=== PATIENT | female | born 1970 | race Caucasian/White ===

== ENCOUNTER 2021-04-21 13:37 | Inpatient (IN) ==
[2021-04-21 18:03] LABS: Basophils # 0.1 K/mcL (0.0-0.2); Basophils % 0.8 %; Eosinophils % 0.4 %; Hematocrit 41.2 % (35.3-44.9); Hemoglobin 14.1 g/dL (11.5-15.4); Immature Granulocytes % 0.3 % (0-4); Lymphocytes # 3.4 K/mcL (0.6-4.6); Mean Corpuscular HGB Conc 34.2 g/dL (31.6-35.5); Mean Corpuscular Hemoglobin 34.8 pg (28.0-33.3); Mean Corpuscular Volume 101.7 fL (83.0-100.0); Mean Platelet Volume 10.8 fL (9.4-12.4); Monocytes # 0.9 K/mcL (0.0-1.3); Neutrophils # 5.5 K/mcL (1.6-8.9); Nucleated Red Blood Cells 0.2 /100 WBC (0); Platelet Count 358 K/mcL (140-400); Red Blood Count 4.05 M/mcL (3.82-4.97); Red Cell Distribution Width 13.7 % (11.5-14.5); Segmented Neutrophils % 55.5 %; White Blood Count 9.9 K/mcL (4.3-11.1)
[2021-04-21 18:05] LABS: VBG HCO3 43 mEq/L (21-27); VBG PCO2 46 mmHg (41-51); VBG PH 7.58 pH Units (7.32-7.42); VBG PO2 34 mmHg (25-50)
[2021-04-21 18:31] LABS: Alanine Aminotransferase 27 Units/L (7-52); Albumin 2.5 g/dL (3.5-5.7); Albumin/Globulin Ratio 0.7 (1.1-2.2); Alkaline Phosphatase 210 Units/L (34-104); Aspartate Amino Transferase 76 Units/L (13-39); BUN/Creatinine Ratio 7 (6-26); Bilirubin,Direct 0.9 mg/dL (0.0-0.2); Bilirubin,Indirect 1.3 mg/dL (0.0-1.0); Bilirubin,Total 2.2 mg/dL (0.3-1.0); Blood Urea Nitrogen 8 mg/dL (6-20); Calcium 8.6 mg/dL (8.6-10.3); Carbon Dioxide 41 mEq/L (23-29); Chloride 79 mEq/L (98-107); Globulin 3.8 g/dL (2.4-3.5); Glucose 225 mg/dL (70-105); Lipase 27 Units/L (11-82); Osmolality,Calculated 275 (280-300); Potassium 2.3 mEq/L (3.5-5.1); Sodium 130 mEq/L (136-145); Total Protein 6.3 g/dL (6.4-8.9); eGFR For African Americans > 60 (> 60); eGFR For Non-African Americans 50 (> 60)
[2021-04-21] MEDS ORDERED: POTASSIUM CHLORIDE IN 0.9%NACL 40 MEQ/1,000 ML IV.SOLN IV STA (18:36)
[2021-04-21 18:39] LABS: Amorphous Sediment,Urine Few per hpf (None-Few); Bacteria,Urine Moderate per hpf (None-Few); Bilirubin,Urine Negative (Negative); Blood,Urine Negative (Negative); Clarity,Urine Turbid (Clear); Color,Urine Yellow (Yellow); Glucose,Urine (UA) Normal (Normal); Hyaline Casts,Urine Many per lpf (None Seen); Ketones,Urine Negative (Negative); Leukocyte Esterase,Urine Large (Negative); Mucus,Urine Few per lpf (None-Few); Nitrite,Urine Negative (Negative); Protein,Urine 30 mg/dL (Neg-Trace); Specific Gravity,Urine 1.017 (1.010-1.025); Squamous Epithelial Cell,Urine Moderate per hpf (None-Few); WBC,Urine 50-100 per hpf (0-3)
[2021-04-21] MEDS ORDERED: Isovue-370 500 ML BOTTLE IVP ONE (18:45)
[2021-04-21] MEDS ORDERED: 0.9 % Sodium Chloride 1,000 ML IVC ONE (18:49)
[2021-04-21] MEDS ORDERED: Potassium Chloride 40 MEQ, Lidocaine 1% 2 ML in 0.9 % Sodium Chloride 500 ML IVPB ONE (19:21)
[2021-04-21] MEDS ORDERED: cefTRIAXone 1,000 MG in Water for inj. (sterile) 10 ML IVP ONE (22:03)
[2021-04-21] MEDS ORDERED: Azithromycin 500 MG in 0.9 % Sodium Chloride 250 ML IVPB ONE (22:04)
[2021-04-21] MEDS ORDERED: Piperacillin/Tazobactam 3.375 GM in 0.9 % Sodium Chloride Mini Bag 100 ML IVPB ONE (22:06)
[2021-04-22 00:17] LABS: INR 1.3; Prothrombin Time 14.4 Seconds (9.4-12.1)
[2021-04-22] MEDS ORDERED: Naloxone 0.4 MG/ML INJ IVP PRN (07:24)
[2021-04-22] MEDS ORDERED: D5% in Water 1,000 ML IVC PRN (08:20)
[2021-04-22] MEDS ORDERED: Dextrose Gel 15 GM/37.5 ML TUBE PO PRN ×2 (08:20)
[2021-04-22] MEDS ORDERED: *HR* Dextrose 50 % in Water (Vial) 50 ML VIAL IVP PRN (08:20)
[2021-04-22] MEDS ORDERED: Ibuprofen 400 MG TABLET PO ONE (08:30)
[2021-04-22] MEDS: *HR* Heparin 5,000 UNIT/ML VIAL SQ SCH ×2 (08:42→17:00)
[2021-04-22] MEDS ORDERED: *HR* LORazepam 2 MG/ML VIAL IVP PRN ×3 (10:35)
[2021-04-22 10:41] LABS: Amphetamine Screen,Urine Negative ng/mL (Cutoff=1000); Barbiturate Screen,Urine Negative ng/mL (Cutoff=200); Benzodiazepines Screen,Urine Negative ng/mL (Cutoff=200); Cannabinoid Screen,Urine Negative ng/mL (Cutoff = 50); Cocaine Screen,Urine Negative ng/mL (Cutoff= 300); Opiate Screen,Urine Negative ng/mL (Cutoff=300); Phencyclidine Screen,Urine Negative ng/mL (Cutoff=25)
[2021-04-22] MEDS: Furosemide 20 MG TABLET PO SCH (11:44)
[2021-04-22] MEDS: Insulin LISPRO 300 UNITS/3 ML VIAL SUBQ SCH ×3 (11:45→20:22)
[2021-04-22 12:03] LABS: Hematocrit 38.9 % (35.3-44.9); Hemoglobin 13.4 g/dL (11.5-15.4); Mean Corpuscular HGB Conc 34.4 g/dL (31.6-35.5); Mean Corpuscular Volume 101.6 fL (83.0-100.0); Mean Platelet Volume 10.6 fL (9.4-12.4); Platelet Count 374 K/mcL (140-400); Red Blood Count 3.83 M/mcL (3.82-4.97); Red Cell Distribution Width 14.1 % (11.5-14.5); White Blood Count 9.6 K/mcL (4.3-11.1)
[2021-04-22 12:26] LABS: % Iron Saturation 67 % (15-50); Iron 109 mcg/dL (50-170); Transferrin 116 mg/dL (203-362)
[2021-04-22 12:33] LABS: BUN/Creatinine Ratio 7 (6-26); Blood Urea Nitrogen 7 mg/dL (6-20); Calcium 8.3 mg/dL (8.6-10.3); Carbon Dioxide 39 mEq/L (23-29); Chloride 83 mEq/L (98-107); Glucose 176 mg/dL (70-105); Osmolality,Calculated 278 (280-300); Sodium 133 mEq/L (136-145); Troponin I 0.07 ng/mL (< 0.04); eGFR For African Americans > 60 (> 60); eGFR For Non-African Americans 59 (> 60)
[2021-04-22 12:44] LABS: Ferritin 750 ng/mL (10-120)
[2021-04-22] MEDS ORDERED: Ondansetron ODT 4 MG TAB.RAPDIS SL PRN (12:46)
[2021-04-22 12:48] LABS: Hepatitis B Surface Antigen Nonreactive (Nonreactive)
[2021-04-22 13:17] LABS: Hepatitis C Virus Antibody Nonreactive (Nonreactive)
[2021-04-22 13:18] LABS: Hepatitis B Core IgM Nonreactive (Nonreactive)
[2021-04-22 13:19] LABS: Hepatitis A Antibody IgM Nonreactive (Nonreactive)
[2021-04-22] MEDS ORDERED: Potassium Chloride 40 MEQ, Lidocaine 1% 2 ML in 0.9 % Sodium Chloride 500 ML IVPB ONE ×2 (13:54→18:36)
[2021-04-22] MEDS: Gabapentin 300 MG CAPSULE PO SCH ×2 (14:46→20:25)
[2021-04-22 16:48] LABS: RBC,Peritoneal Fluid < 2000 RBC/mcL
[2021-04-22 17:05] LABS: Glucose,Peritoneal Fluid 194 mg/dL (No Ref Range); LDH,Peritoneal Fluid 56 Units/L (No Ref Range); Total Protein,Peritoneal Fluid < 2.0 g/dL
[2021-04-22 17:29] LABS: Appearance of Peritoneal Fl CLEAR (Clear); Basophils,Peritoneal Fluid 0 %; Eosinophils,Peritoneal Fluid 0 %
[2021-04-22 18:31] LABS: Potassium 2.5 mEq/L (3.5-5.1); Troponin I 0.06 ng/mL (< 0.04)
[2021-04-22] MEDS ORDERED: Simethicone 80 MG TAB.CHEW PO PRN (18:55)
[2021-04-23] MEDS: *HR* Heparin 5,000 UNIT/ML VIAL SQ SCH ×4 (00:15→23:59)
[2021-04-23 03:43] LABS: Basophils # 0.1 K/mcL (0.0-0.2); Basophils % 0.8 %; Eosinophils # 0.1 K/mcL (0.0-0.6); Eosinophils % 1.2 %; Immature Granulocytes % 0.4 % (0-4); Lymphocytes # 2.8 K/mcL (0.6-4.6); Lymphocytes % 33.8 %; Mean Corpuscular HGB Conc 34.1 g/dL (31.6-35.5); Mean Corpuscular Hemoglobin 34.9 pg (28.0-33.3); Mean Corpuscular Volume 102.4 fL (83.0-100.0); Mean Platelet Volume 10.7 fL (9.4-12.4); Monocytes # 0.7 K/mcL (0.0-1.3); Monocytes % 8.8 %; Neutrophils # 4.6 K/mcL (1.6-8.9); Platelet Count 298 K/mcL (140-400); Red Blood Count 3.32 M/mcL (3.82-4.97); Red Cell Distribution Width 14.1 % (11.5-14.5); White Blood Count 8.3 K/mcL (4.3-11.1)
[2021-04-23 03:46] LABS: Hemoglobin 11.6 g/dL (11.5-15.4)
[2021-04-23 04:02] LABS: BUN/Creatinine Ratio 9 (6-26); Blood Urea Nitrogen 8 mg/dL (6-20); Calcium 7.7 mg/dL (8.6-10.3); Carbon Dioxide 37 mEq/L (23-29); Chloride 89 mEq/L (98-107); Glucose 210 mg/dL (70-105); Osmolality,Calculated 283 (280-300); Potassium 2.9 mEq/L (3.5-5.1); Sodium 134 mEq/L (136-145); eGFR For African Americans > 60 (> 60); eGFR For Non-African Americans > 60 (> 60)
[2021-04-23] MEDS ORDERED: Potassium Chloride 40 MEQ, Lidocaine 1% 2 ML in 0.9 % Sodium Chloride 500 ML IVPB ONE (08:05)
[2021-04-23] MEDS: lisinopriL 10 MG TABLET PO SCH (08:25)
[2021-04-23] MEDS: Gabapentin 300 MG CAPSULE PO SCH ×3 (08:25→23:11)
[2021-04-23] MEDS: Furosemide 20 MG TABLET PO SCH (08:25)
[2021-04-23] MEDS: Insulin LISPRO 300 UNITS/3 ML VIAL SUBQ SCH ×4 (08:26→21:06)
[2021-04-23 13:47] LABS: AFP Tumor Marker Non-Pregnant 6 ng/mL (0-9)
[2021-04-24] MEDS: Insulin LISPRO 300 UNITS/3 ML VIAL SUBQ SCH (08:12)
[2021-04-24 09:00] LABS: BUN/Creatinine Ratio 7 (6-26); Blood Urea Nitrogen 7 mg/dL (6-20); Calcium 8.4 mg/dL (8.6-10.3); Carbon Dioxide 39 mEq/L (23-29); Chloride 90 mEq/L (98-107); Glucose 170 mg/dL (70-105); Osmolality,Calculated 278 (280-300); Potassium 3.8 mEq/L (3.5-5.1); Sodium 133 mEq/L (136-145); eGFR For African Americans > 60 (> 60); eGFR For Non-African Americans 60 (> 60)
[2021-04-24] MEDS: Furosemide 20 MG TABLET PO SCH (09:42)
[2021-04-24] MEDS: Gabapentin 300 MG CAPSULE PO SCH (09:42)
[2021-04-24] MEDS: lisinopriL 10 MG TABLET PO SCH (09:43)
[2021-04-24] MEDS: *HR* Heparin 5,000 UNIT/ML VIAL SQ SCH (09:43)
[2021-04-24 11:02] VITALS: BP 126/86
[2021-04-24 11:28] LABS: ANA IgG by ELISA NONE DETECTED (None Detected); F-Actin (sm muscle) Ab IgG 6 Units (0-19)
[2021-04-24 22:31] LABS: Fluid Source for Albumin PERITONEAL
[2021-04-25 10:42] LABS: Serine Protease-3 Antibody 6 AU/mL (0-19)
== END 2021-04-24 11:51 | disposition home or self-care (01) | DRG 434 ==
LOC: EMEROOARM 13:37 → CDU 13:37 → SUATTDRO 04-22 07:43 → CDU 04-22 07:51 → 3BNU 04-23 15:32
PROVIDERS: ADMIT Internal Medicine; ATTEND Internal Medicine

== ENCOUNTER 2021-05-16 10:14 | Inpatient (IN) ==
[2021-05-16 11:09] LABS: Basophils # 0.1 K/mcL (0.0-0.2); Basophils % 1.2 %; Eosinophils # 0.3 K/mcL (0.0-0.6); Eosinophils % 3.8 %; Hematocrit 42.5 % (35.3-44.9); Hemoglobin 13.7 g/dL (11.5-15.4); Immature Granulocytes % 0.3 % (0-4); Lymphocytes % 23.2 %; Mean Corpuscular HGB Conc 32.2 g/dL (31.6-35.5); Mean Corpuscular Hemoglobin 33.6 pg (28.0-33.3); Mean Corpuscular Volume 104.2 fL (83.0-100.0); Mean Platelet Volume 9.7 fL (9.4-12.4); Monocytes # 0.7 K/mcL (0.0-1.3); Neutrophils # 5.5 K/mcL (1.6-8.9); Platelet Count 492 K/mcL (140-400); Red Blood Count 4.08 M/mcL (3.82-4.97); Segmented Neutrophils % 63.5 %; White Blood Count 8.6 K/mcL (4.3-11.1)
[2021-05-16 11:40] LABS: BUN/Creatinine Ratio 9 (6-26); Blood Urea Nitrogen 7 mg/dL (6-20); Calcium 8.9 mg/dL (8.6-10.3); Carbon Dioxide 27 mEq/L (23-29); Chloride 96 mEq/L (98-107); Glucose 160 mg/dL (70-105); Osmolality,Calculated 279 (280-300); Potassium 3.4 mEq/L (3.5-5.1); Sodium 134 mEq/L (136-145); Troponin I < 0.03 ng/mL (< 0.04); eGFR For African Americans > 60 (> 60); eGFR For Non-African Americans > 60 (> 60)
[2021-05-16] MEDS ORDERED: Melatonin 3 MG TABLET PO PRN (15:09)
[2021-05-16 15:22] LABS: INR 1.2; Prothrombin Time 13.3 Seconds (9.4-12.1)
[2021-05-16 15:34] LABS: Lactate Dehydrogenase 269 Units/L (140-271); Total Protein 6.6 g/dL (6.4-8.9)
[2021-05-16 15:39] LABS: Albumin 2.6 g/dL (3.5-5.7); Albumin/Globulin Ratio 0.7 (1.1-2.2); Bilirubin,Direct 0.2 mg/dL (0.0-0.2); Bilirubin,Indirect 0.9 mg/dL (0.0-1.0); Bilirubin,Total 1.1 mg/dL (0.3-1.0); Globulin 3.9 g/dL (2.4-3.5); Total Protein 6.5 g/dL (6.4-8.9)
[2021-05-16] MEDS: Furosemide 40 MG TABLET PO SCH (15:57)
[2021-05-16 19:49] LABS: RBC,Pleural Fluid < 2000 RBC/mcL
[2021-05-16 19:50] LABS: Appearance of Pleural Fl Clear (Clear)
[2021-05-16 20:04] LABS: Glucose,Pleural Fluid 160 mg/dL (No Ref Range); LDH,Pleural Fluid 90 Units/L (No Ref Range); Total Protein,Pleural Fluid < 2.0 g/dL
[2021-05-16 20:42] LABS: Basophils,Pleural Fluid 0 %; Eosinophils,Pleural Fluid 0 %; Monocytes,Pleural Fluid 0 %
[2021-05-17] MEDS: Acetaminophen 325 MG TABLET PO PRN (00:04)
[2021-05-17 02:42] LABS: Alanine Aminotransferase 15 Units/L (7-52); Albumin 2.3 g/dL (3.5-5.7); Albumin/Globulin Ratio 0.7 (1.1-2.2); Alkaline Phosphatase 106 Units/L (34-104); Aspartate Amino Transferase 34 Units/L (13-39); BUN/Creatinine Ratio 8 (6-26); Bilirubin,Direct 0.3 mg/dL (0.0-0.2); Bilirubin,Indirect 0.6 mg/dL (0.0-1.0); Bilirubin,Total 0.9 mg/dL (0.3-1.0); Blood Urea Nitrogen 7 mg/dL (6-20); Calcium 8.1 mg/dL (8.6-10.3); Carbon Dioxide 26 mEq/L (23-29); Chloride 99 mEq/L (98-107); Globulin 3.5 g/dL (2.4-3.5); Glucose 143 mg/dL (70-105); Osmolality,Calculated 280 (280-300); Potassium 3.6 mEq/L (3.5-5.1); Sodium 135 mEq/L (136-145); Total Protein 5.8 g/dL (6.4-8.9); eGFR For African Americans > 60 (> 60); eGFR For Non-African Americans > 60 (> 60)
[2021-05-17] MEDS ORDERED: Albumin 25% 25gram/100mL 25 GM/100 ML IV.SOLN IVPB ONE (04:06)
[2021-05-17] MEDS: *HR* Enoxaparin 40 MG/0.4 ML SYRINGE SQ SCH (07:00)
[2021-05-17] MEDS: Furosemide 40 MG TABLET PO SCH ×2 (07:10→17:17)
[2021-05-17] MEDS ORDERED: Perflutren Lipid Microsphere 1.3 ML in 0.9 % Sodium Chloride 8.7 ML IVP PRN (07:14)
[2021-05-17] MEDS: Albumin 25% 25gram/100mL 25 GM/100 ML IV.SOLN IVPB SCH ×2 (08:16→15:42)
[2021-05-17] MEDS ORDERED: Insulin DETEMIR 100 UNIT/ML X5UNITS SUBQ SCH (09:00)
[2021-05-17] MEDS ORDERED: Gabapentin 300 MG CAPSULE PO SCH (09:00)
[2021-05-17] MEDS: Azithromycin 500 MG in 0.9 % Sodium Chloride 250 ML IVPB SCH (12:16)
[2021-05-17] MEDS: cefTRIAXone 1,000 MG in Water for inj. (sterile) 10 ML IVP SCH (12:16)
[2021-05-17] MEDS ORDERED: *HR* Dextrose 50 % in Water (Vial) 50 ML VIAL ONE (16:38)
[2021-05-17] MEDS ORDERED: D5% in Water 1,000 ML IVC PRN (16:59)
[2021-05-17] MEDS ORDERED: *HR* Dextrose 50 % in Water (Vial) 50 ML VIAL IVP PRN (16:59)
[2021-05-17] MEDS ORDERED: Dextrose Gel 15 GM/37.5 ML TUBE PO PRN ×2 (16:59)
[2021-05-17] MEDS ORDERED: D10% in Water 500 ML IVC SCH (17:30)
[2021-05-18] MEDS: Albumin 25% 25gram/100mL 25 GM/100 ML IV.SOLN IVPB SCH ×2 (00:05→07:50)
[2021-05-18 05:15] LABS: Basophils # 0.1 K/mcL (0.0-0.2); Basophils % 0.8 %; Eosinophils # 0.3 K/mcL (0.0-0.6); Eosinophils % 4.1 %; Hematocrit 34.1 % (35.3-44.9); Immature Granulocytes % 0.2 % (0-4); Lymphocytes # 2.5 K/mcL (0.6-4.6); Mean Corpuscular HGB Conc 32.8 g/dL (31.6-35.5); Mean Corpuscular Hemoglobin 33.3 pg (28.0-33.3); Mean Corpuscular Volume 101.5 fL (83.0-100.0); Mean Platelet Volume 9.5 fL (9.4-12.4); Monocytes # 0.8 K/mcL (0.0-1.3); Monocytes % 11.9 %; Neutrophils # 2.8 K/mcL (1.6-8.9); Platelet Count 338 K/mcL (140-400); Red Blood Count 3.36 M/mcL (3.82-4.97); Red Cell Distribution Width 12.9 % (11.5-14.5); White Blood Count 6.4 K/mcL (4.3-11.1)
[2021-05-18 05:18] LABS: Hemoglobin 11.2 g/dL (11.5-15.4)
[2021-05-18] MEDS: *HR* Enoxaparin 40 MG/0.4 ML SYRINGE SQ SCH (05:23)
[2021-05-18 05:31] LABS: Platelet Estimate Normal (Normal); Polychromasia 1+ (Not Present); Reactive Lymphocytes Present (Not Present)
[2021-05-18 05:37] LABS: Alanine Aminotransferase 13 Units/L (7-52); Albumin 3.3 g/dL (3.5-5.7); Albumin/Globulin Ratio 1.1 (1.1-2.2); Alkaline Phosphatase 88 Units/L (34-104); Aspartate Amino Transferase 34 Units/L (13-39); BUN/Creatinine Ratio 6 (6-26); Bilirubin,Total 0.7 mg/dL (0.3-1.0); Blood Urea Nitrogen 5 mg/dL (6-20); Calcium 8.9 mg/dL (8.6-10.3); Carbon Dioxide 30 mEq/L (23-29); Chloride 102 mEq/L (98-107); Globulin 2.9 g/dL (2.4-3.5); Glucose 92 mg/dL (70-105); Osmolality,Calculated 287 (280-300); Potassium 3.1 mEq/L (3.5-5.1); Sodium 140 mEq/L (136-145); Total Protein 6.2 g/dL (6.4-8.9); eGFR For African Americans > 60 (> 60); eGFR For Non-African Americans > 60 (> 60)
[2021-05-18] MEDS: Levalbuterol Neb 0.63 MG/3 ML IH PRN (05:49)
[2021-05-18 07:00] LABS: Estimated Average Glucose 120 mg/dl; Hemoglobin A1C 5.8 %
[2021-05-18] MEDS: cefTRIAXone 1,000 MG in Water for inj. (sterile) 10 ML IVP SCH (07:50)
[2021-05-18] MEDS: Furosemide 40 MG TABLET PO SCH ×2 (07:51→15:45)
[2021-05-18] MEDS: Metoprolol XL (24 HR) Succ 25 MG TAB.ER.24H PO SCH (07:51)
[2021-05-18] MEDS ORDERED: Insulin DETEMIR 100 UNIT/ML X5UNITS SUBQ SCH (09:00)
[2021-05-18] MEDS: Azithromycin 500 MG in 0.9 % Sodium Chloride 250 ML IVPB SCH (09:39)
[2021-05-18] MEDS: *HR* OxyCODONE Immed Rel 5 MG TABLET PO PRN ×3 (09:52→21:49)
[2021-05-18] MEDS: Ondansetron 4 MG/2 ML VIAL IVP PRN (10:30)
[2021-05-18] MEDS: Gabapentin 300 MG CAPSULE PO SCH (20:21)
[2021-05-18 21:32] LABS: Fluid Source for Cholesterol PLEURAL FLUID
[2021-05-19 01:54] LABS: Basophils # 0.1 K/mcL (0.0-0.2); Eosinophils # 0.3 K/mcL (0.0-0.6); Eosinophils % 3.9 %; Immature Granulocytes % 0.1 % (0-4); Lymphocytes # 2.1 K/mcL (0.6-4.6); Mean Corpuscular HGB Conc 31.6 g/dL (31.6-35.5); Mean Corpuscular Hemoglobin 32.8 pg (28.0-33.3); Mean Corpuscular Volume 103.8 fL (83.0-100.0); Mean Platelet Volume 9.5 fL (9.4-12.4); Monocytes # 0.9 K/mcL (0.0-1.3); Monocytes % 12.8 %; Neutrophils # 3.7 K/mcL (1.6-8.9); Platelet Count 338 K/mcL (140-400); Red Blood Count 3.66 M/mcL (3.82-4.97); Segmented Neutrophils % 52.2 %; White Blood Count 7.1 K/mcL (4.3-11.1)
[2021-05-19 02:01] LABS: INR 1.2; Prothrombin Time 14.2 Seconds (9.4-12.1)
[2021-05-19 02:17] LABS: Alanine Aminotransferase 15 Units/L (7-52); Albumin 3.4 g/dL (3.5-5.7); Albumin/Globulin Ratio 1.1 (1.1-2.2); Alkaline Phosphatase 91 Units/L (34-104); Aspartate Amino Transferase 41 Units/L (13-39); BUN/Creatinine Ratio 4 (6-26); Bilirubin,Total 0.9 mg/dL (0.3-1.0); Blood Urea Nitrogen 3 mg/dL (6-20); Calcium 8.6 mg/dL (8.6-10.3); Carbon Dioxide 28 mEq/L (23-29); Chloride 99 mEq/L (98-107); Globulin 3.2 g/dL (2.4-3.5); Glucose 165 mg/dL (70-105); Osmolality,Calculated 284 (280-300); Potassium 3.5 mEq/L (3.5-5.1); Sodium 137 mEq/L (136-145); Total Protein 6.6 g/dL (6.4-8.9); eGFR For African Americans > 60 (> 60); eGFR For Non-African Americans > 60 (> 60)
[2021-05-19] MEDS: *HR* OxyCODONE Immed Rel 5 MG TABLET PO PRN ×4 (04:25→23:10)
[2021-05-19] MEDS: *HR* Enoxaparin 40 MG/0.4 ML SYRINGE SQ SCH (05:37)
[2021-05-19 06:32] LABS: Cholesterol,Body Fluid 31 mg/dL
[2021-05-19] MEDS: Furosemide 40 MG TABLET PO SCH ×2 (07:20→16:34)
[2021-05-19] MEDS: Metoprolol XL (24 HR) Succ 25 MG TAB.ER.24H PO SCH (07:21)
[2021-05-19] MEDS: cefTRIAXone 1,000 MG in Water for inj. (sterile) 10 ML IVP SCH (07:21)
[2021-05-19] MEDS: levoFLOXacin 750 MG/150 ML 750 MG/150 ML BAG IVPB SCH (08:13)
[2021-05-19] MEDS ORDERED: Morphine Sulfate 2 MG/ML SYRINGE IVP ONE (08:34)
[2021-05-19 09:22] LABS: INR 1.3; Prothrombin Time 14.7 Seconds (9.4-12.1)
[2021-05-19 09:34] LABS: Lactate Dehydrogenase 254 Units/L (140-271)
[2021-05-19 11:49] LABS: Total Protein 6.5 g/dL (6.4-8.9)
[2021-05-19] MEDS ORDERED: *HR* HYDROmorphone (PF) 1 MG/ML SYRINGE IVP ONE (14:14)
[2021-05-19] MEDS: Gabapentin 300 MG CAPSULE PO SCH (21:53)
[2021-05-19] MEDS: Ondansetron 4 MG/2 ML VIAL IVP PRN (23:11)
[2021-05-20 04:57] LABS: Basophils % 0.5 %; Eosinophils # 0.3 K/mcL (0.0-0.6); Eosinophils % 4.6 %; Immature Granulocytes % 0.3 % (0-4); Lymphocytes # 2.4 K/mcL (0.6-4.6); Lymphocytes % 36.1 %; Mean Corpuscular HGB Conc 33.3 g/dL (31.6-35.5); Mean Corpuscular Volume 101.9 fL (83.0-100.0); Mean Platelet Volume 9.8 fL (9.4-12.4); Monocytes % 15.3 %; Neutrophils # 2.8 K/mcL (1.6-8.9); Platelet Count 291 K/mcL (140-400); Red Blood Count 3.24 M/mcL (3.82-4.97); Red Cell Distribution Width 12.8 % (11.5-14.5); Segmented Neutrophils % 43.2 %; White Blood Count 6.5 K/mcL (4.3-11.1)
[2021-05-20 05:05] LABS: Alanine Aminotransferase 14 Units/L (7-52); Albumin 2.8 g/dL (3.5-5.7); Alkaline Phosphatase 81 Units/L (34-104); Aspartate Amino Transferase 37 Units/L (13-39); BUN/Creatinine Ratio 9 (6-26); Bilirubin,Total 1.1 mg/dL (0.3-1.0); Blood Urea Nitrogen 7 mg/dL (6-20); Calcium 8.5 mg/dL (8.6-10.3); Carbon Dioxide 31 mEq/L (23-29); Chloride 95 mEq/L (98-107); Globulin 2.9 g/dL (2.4-3.5); Glucose 175 mg/dL (70-105); Osmolality,Calculated 280 (280-300); Potassium 3.4 mEq/L (3.5-5.1); Sodium 134 mEq/L (136-145); Total Protein 5.7 g/dL (6.4-8.9); eGFR For African Americans > 60 (> 60); eGFR For Non-African Americans > 60 (> 60)
[2021-05-20 05:50] LABS: Platelet Estimate Normal (Normal); Reactive Lymphocytes Present (Not Present)
[2021-05-20] MEDS: *HR* Enoxaparin 40 MG/0.4 ML SYRINGE SQ SCH (05:59)
[2021-05-20] MEDS: Furosemide 40 MG TABLET PO SCH ×2 (10:16→16:55)
[2021-05-20] MEDS: Metoprolol XL (24 HR) Succ 25 MG TAB.ER.24H PO SCH (10:16)
[2021-05-20] MEDS: *HR* OxyCODONE Immed Rel 5 MG TABLET PO PRN ×3 (10:16→23:47)
[2021-05-20] MEDS: Albumin 25% 25gram/100mL 25 GM/100 ML IV.SOLN IVPB SCH ×3 (10:17→23:06)
[2021-05-20] MEDS: levoFLOXacin 750 MG/150 ML 750 MG/150 ML BAG IVPB SCH (10:18)
[2021-05-20] MEDS: Acetaminophen 325 MG TABLET PO PRN (20:24)
[2021-05-20] MEDS: Gabapentin 300 MG CAPSULE PO SCH (20:24)
[2021-05-20] MEDS: Levalbuterol Neb 0.63 MG/3 ML IH PRN (21:01)
[2021-05-21 01:52] LABS: Basophils # 0.1 K/mcL (0.0-0.2); Basophils % 0.8 %; Eosinophils # 0.3 K/mcL (0.0-0.6); Eosinophils % 4.9 %; Hematocrit 30.7 % (35.3-44.9); Hemoglobin 10.3 g/dL (11.5-15.4); Immature Granulocytes % 0.3 % (0-4); Lymphocytes % 35.7 %; Mean Corpuscular HGB Conc 33.6 g/dL (31.6-35.5); Mean Corpuscular Hemoglobin 33.8 pg (28.0-33.3); Mean Corpuscular Volume 100.7 fL (83.0-100.0); Mean Platelet Volume 9.9 fL (9.4-12.4); Monocytes # 0.7 K/mcL (0.0-1.3); Monocytes % 11.5 %; Platelet Count 283 K/mcL (140-400); Red Blood Count 3.05 M/mcL (3.82-4.97); Red Cell Distribution Width 12.6 % (11.5-14.5); Segmented Neutrophils % 46.8 %; White Blood Count 6.3 K/mcL (4.3-11.1)
[2021-05-21 01:58] LABS: Lymphocytes # 2.3 K/mcL (0.6-4.6)
[2021-05-21 02:05] LABS: Alanine Aminotransferase 11 Units/L (7-52); Albumin 3.7 g/dL (3.5-5.7); Albumin/Globulin Ratio 1.5 (1.1-2.2); Alkaline Phosphatase 82 Units/L (34-104); Aspartate Amino Transferase 35 Units/L (13-39); BUN/Creatinine Ratio 8 (6-26); Blood Urea Nitrogen 7 mg/dL (6-20); Calcium 9.1 mg/dL (8.6-10.3); Carbon Dioxide 28 mEq/L (23-29); Chloride 100 mEq/L (98-107); Globulin 2.5 g/dL (2.4-3.5); Glucose 202 mg/dL (70-105); INR 1.5; Osmolality,Calculated 288 (280-300); Potassium 3.6 mEq/L (3.5-5.1); Prothrombin Time 16.6 Seconds (9.4-12.1); Sodium 137 mEq/L (136-145); Total Protein 6.2 g/dL (6.4-8.9); eGFR For African Americans > 60 (> 60); eGFR For Non-African Americans > 60 (> 60)
[2021-05-21 02:43] LABS: Platelet Estimate Normal (Normal); Reactive Lymphocytes Present (Not Present)
[2021-05-21 04:08] VITALS: TEMP 98
[2021-05-21] MEDS: *HR* Enoxaparin 40 MG/0.4 ML SYRINGE SQ SCH (05:59)
[2021-05-21 07:53] VITALS: BP 110/70; PULSE 91; O2SAT 91
[2021-05-21] MEDS: Furosemide 40 MG TABLET PO SCH (08:24)
[2021-05-21] MEDS: *HR* OxyCODONE Immed Rel 5 MG TABLET PO PRN (08:37)
[2021-05-21] MEDS ORDERED: *HR* Metformin 500 MG TABLET PO SCH (09:00)
[2021-05-21] MEDS ORDERED: levoFLOXacin 750 MG TABLET PO SCH (09:00)
[2021-05-21] MEDS ORDERED: Metoprolol XL (24 HR) Succ 25 MG TAB.ER.24H PO SCH (09:00)
== END 2021-05-21 12:03 | disposition home or self-care (01) | DRG 432 ==
LOC: EMEROOARM 10:14 → 2ANU 10:14 → SUATTDRO 05-18 15:18
PROVIDERS: ADMIT Internal Medicine; ATTEND Internal Medicine